=== PATIENT | male | born 1950 | race Two or more races ===

== ENCOUNTER 2020-04-06 16:30 | Inpatient (IN) | payer MEDICARE ==
[~2020-04-06] VITALS: Ht 182.9 cm; Wt 78.0 kg
[2020-04-06] MEDS ORDERED: GuaiFENesin [SUGAR-FREE] 200 MG/10 ML SOLUTION UDCUP PO PRN (21:45)
[2020-04-06] MEDS ORDERED: ACETAMINOPHEN 325 MG TABLET PO PRN (21:45)
[2020-04-06] MEDS ORDERED: BISACODYL 5 MG EC TABLET PO PRN (21:45)
[2020-04-06 22:26] VITALS: BP 95/53
[2020-04-06] MEDS: DOCUSATE SODIUM 100 MG CAPSULE PO SCH (22:41)
[2020-04-06] MEDS: SENNA 187 MG TABLET PO SCH (22:41)
[2020-04-06] MEDS: GABAPENTIN 100 MG CAPSULE PO SCH (22:41)
[2020-04-06] MEDS: CALCIUM CARBONATE 500 MG CHEWABLE TABLET CHEW SCH (22:42)
[2020-04-06] MEDS: CARBIDOPA/LEVODOPA 25-100 MG TABLET PO SCH (22:42)
[2020-04-07] VITALS: BP 90/50
[2020-04-07 00:06] LABS: COVID AG,FIA SOURCE NASAL SWAB
[2020-04-07 07:00] LABS: EOSINOPHILS % (AUTO) 2.8 % (1.0-6.0); HEMATOCRIT 37.4 % (41-53); HEMOGLOBIN 12.4 g/dL (13.5-17.5); LYMPHOCYTES # (AUTO) 1.8 K/uL (1.0-4.8); LYMPHOCYTES % (AUTO) 25.1 % (22.0-44.0); MEAN CORPUSCULAR HGB CONC 33.2 G/dL (31.0-37.0); MEAN CORPUSCULAR VOLUME 96 fL (80-100); MONOCYTES # (AUTO) 0.8 K/uL (0.1-1.0); MONOCYTES % (AUTO) 12.1 % (2.0-9.0); NEUTROPHILS # (AUTO) 4.1 K/uL (1.8-7.7); PLATELET COUNT (AUTO) 289 K/uL (150-450); RED BLOOD CELL COUNT(AUTO) 3.87 MIL/uL (4.50-5.90); RED CELL DISTRIBUTION WIDTH 12.9 % (11.5-14.5)
[2020-04-07 07:21] LABS: ALANINE AMINOTRANSFERASE 18 U/L (12-78); ALBUMIN 2.7 g/dL (3.4-5.0); ALKALINE PHOSPHATASE 81 U/L (46-116); ANION GAP 6 mmol/L (8-16); ASPARTATE AMINOTRANSFERASE 24 U/L (15-37); BILIRUBIN,TOTAL 0.2 mg/dL (0.1-1.0); CALCIUM, TOTAL 9.5 mg/dL (8.8-10.5); CARBON DIOXIDE 31 mmol/L (22-29); CHLORIDE 104 mmol/L (98-107); CREATININE 0.56 mg/dL (0.60-1.30); GLOMERULAR FILTR. RATE CALC > 60 mL/min (>60); GLUCOSE,RANDOM 89 mg/dL (70-110); POTASSIUM 3.9 mmol/L (3.5-5.1); SODIUM SERUM 141 mmol/L (136-145); TOTAL PROTEIN, SERUM 5.6 g/dL (6.4-8.2); UREA NITROGEN, BLOOD 20 mg/dL (7-18)
[2020-04-07 07:30] VITALS: BP 90/55
[2020-04-07] MEDS: NICOTINE 14 MG/24 HOUR PATCH TD SCH (08:24)
[2020-04-07] MEDS: ENOXAPARIN SODIUM 40 MG/0.4 ML PF SYRINGE SQ SCH (08:24)
[2020-04-07] MEDS: CALCIUM CARBONATE 500 MG CHEWABLE TABLET CHEW SCH ×3 (08:24→21:12)
[2020-04-07] MEDS: TAMSULOSIN HCL 0.4 MG CAPSULE PO SCH (08:24)
[2020-04-07] MEDS: GABAPENTIN 100 MG CAPSULE PO SCH ×2 (08:24→21:12)
[2020-04-07] MEDS: DOCUSATE SODIUM 100 MG CAPSULE PO SCH ×2 (08:25→21:13)
[2020-04-07] MEDS: CARBIDOPA/LEVODOPA 25-100 MG TABLET PO SCH ×3 (08:25→21:13)
[2020-04-07] MEDS: FOLIC ACID 1 MG TABLET PO SCH (08:25)
[2020-04-07] MEDS: COLD CREAM, SKIN EMOLLIENT 170 GM JAR TP SCH ×2 (08:26→21:14)
[2020-04-07] MEDS ORDERED: THIAMINE 100 MG TABLET PO SCH (09:00)
[2020-04-07 16:25] VITALS: BP 113/57
[2020-04-07] MEDS: SENNA 187 MG TABLET PO SCH (21:12)
[2020-04-07] MEDS: FAMOTIDINE 20 MG TABLET PO SCH (21:12)
[2020-04-08] VITALS: BP 98/52
[2020-04-08 08:47] VITALS: BP 96/54
[2020-04-08] MEDS: NICOTINE 14 MG/24 HOUR PATCH TD SCH (08:55)
[2020-04-08] MEDS: GABAPENTIN 100 MG CAPSULE PO SCH ×2 (08:56→21:35)
[2020-04-08] MEDS: FOLIC ACID 1 MG TABLET PO SCH (08:56)
[2020-04-08] MEDS: ENOXAPARIN SODIUM 40 MG/0.4 ML PF SYRINGE SQ SCH (08:56)
[2020-04-08] MEDS: CARBIDOPA/LEVODOPA 25-100 MG TABLET PO SCH ×3 (08:56→21:35)
[2020-04-08] MEDS: TAMSULOSIN HCL 0.4 MG CAPSULE PO SCH (08:56)
[2020-04-08] MEDS: FAMOTIDINE 20 MG TABLET PO SCH ×2 (08:56→21:36)
[2020-04-08] MEDS: COLD CREAM, SKIN EMOLLIENT 170 GM JAR TP SCH ×2 (08:56→21:36)
[2020-04-08] MEDS: DOCUSATE SODIUM 100 MG CAPSULE PO SCH (08:56)
[2020-04-08] MEDS: CALCIUM CARBONATE 500 MG CHEWABLE TABLET CHEW SCH ×3 (08:56→21:35)
[2020-04-08 16:21] VITALS: BP 99/50
[2020-04-08] MEDS: DOCUSATE SODIUM 250 MG CAPSULE PO SCH (21:35)
[2020-04-08] MEDS: SENNA 187 MG TABLET PO SCH (21:45)
[2020-04-09 02:35] VITALS: BP 94/49
[2020-04-09 08:01] VITALS: BP 106/58
[2020-04-09] MEDS: TAMSULOSIN HCL 0.4 MG CAPSULE PO SCH (09:35)
[2020-04-09] MEDS: DOCUSATE SODIUM 250 MG CAPSULE PO SCH ×2 (09:35→20:41)
[2020-04-09] MEDS: CALCIUM CARBONATE 500 MG CHEWABLE TABLET CHEW SCH ×3 (09:35→20:43)
[2020-04-09] MEDS: FOLIC ACID 1 MG TABLET PO SCH (09:35)
[2020-04-09] MEDS: FAMOTIDINE 20 MG TABLET PO SCH ×2 (09:36→20:41)
[2020-04-09] MEDS: ENOXAPARIN SODIUM 40 MG/0.4 ML PF SYRINGE SQ SCH (09:36)
[2020-04-09] MEDS: COLD CREAM, SKIN EMOLLIENT 170 GM JAR TP SCH ×2 (09:36→20:43)
[2020-04-09] MEDS: CARBIDOPA/LEVODOPA 25-100 MG TABLET PO SCH ×3 (09:36→20:43)
[2020-04-09] MEDS: GABAPENTIN 100 MG CAPSULE PO SCH ×2 (09:36→20:41)
[2020-04-09] MEDS: NICOTINE 14 MG/24 HOUR PATCH TD SCH (09:36)
[2020-04-09 16:00] VITALS: BP 105/63
[2020-04-09] MEDS: SENNA 187 MG TABLET PO SCH (20:41)
[2020-04-10] VITALS: BP 97/51
[2020-04-10 07:30] VITALS: BP 99/51
[2020-04-10] MEDS: ENOXAPARIN SODIUM 40 MG/0.4 ML PF SYRINGE SQ SCH (08:27)
[2020-04-10] MEDS: NICOTINE 14 MG/24 HOUR PATCH TD SCH (08:27)
[2020-04-10] MEDS: CALCIUM CARBONATE 500 MG CHEWABLE TABLET CHEW SCH (08:28)
[2020-04-10] MEDS: FOLIC ACID 1 MG TABLET PO SCH (08:28)
[2020-04-10] MEDS: TAMSULOSIN HCL 0.4 MG CAPSULE PO SCH (08:28)
[2020-04-10] MEDS: DOCUSATE SODIUM 250 MG CAPSULE PO SCH ×2 (08:28→20:10)
[2020-04-10] MEDS: CARBIDOPA/LEVODOPA 25-100 MG TABLET PO SCH ×3 (08:28→20:10)
[2020-04-10] MEDS: FAMOTIDINE 20 MG TABLET PO SCH ×2 (08:28→20:10)
[2020-04-10] MEDS: COLD CREAM, SKIN EMOLLIENT 170 GM JAR TP SCH ×2 (08:29→20:09)
[2020-04-10] MEDS: MULTIVITAMINS WITH MINERALS, THERAPEUTIC TABLET PO SCH (08:29)
[2020-04-10 15:13] VITALS: BP 105/59
[2020-04-10] MEDS ORDERED: TAMS-13 PO (17:29)
[2020-04-10] MEDS ORDERED: MULT-1081 PO (17:29)
[2020-04-10] MEDS: SENNA 187 MG TABLET PO SCH (20:10)
[2020-04-10] MEDS: GABAPENTIN 100 MG CAPSULE PO SCH (20:10)
[2020-04-11 01:15] VITALS: BP 135/51
[2020-04-11 07:20] VITALS: BP 93/51
[2020-04-11] MEDS: CALCIUM CARBONATE 500 MG CHEWABLE TABLET CHEW SCH (08:42)
[2020-04-11] MEDS: NICOTINE 14 MG/24 HOUR PATCH TD SCH (08:42)
[2020-04-11] MEDS: ENOXAPARIN SODIUM 40 MG/0.4 ML PF SYRINGE SQ SCH (08:42)
[2020-04-11] MEDS: FOLIC ACID 1 MG TABLET PO SCH (08:42)
[2020-04-11] MEDS: FAMOTIDINE 20 MG TABLET PO SCH ×2 (08:42→21:01)
[2020-04-11] MEDS: DOCUSATE SODIUM 250 MG CAPSULE PO SCH ×2 (08:42→21:00)
[2020-04-11] MEDS: TAMSULOSIN HCL 0.4 MG CAPSULE PO SCH (08:42)
[2020-04-11] MEDS: MULTIVITAMINS WITH MINERALS, THERAPEUTIC TABLET PO SCH (08:42)
[2020-04-11] MEDS: COLD CREAM, SKIN EMOLLIENT 170 GM JAR TP SCH ×2 (08:42→21:00)
[2020-04-11] MEDS: CARBIDOPA/LEVODOPA 25-100 MG TABLET PO SCH ×3 (08:43→21:00)
[2020-04-11 16:00] VITALS: BP 114/68
[2020-04-11] MEDS: THIAMINE 100 MG TABLET PO SCH (16:13)
[2020-04-11] MEDS: GABAPENTIN 100 MG CAPSULE PO SCH (21:00)
[2020-04-11] MEDS: SENNA 187 MG TABLET PO SCH (21:00)
[2020-04-12 00:36] VITALS: BP 100/55
[2020-04-12 07:30] VITALS: BP 87/52
[2020-04-12] MEDS: ENOXAPARIN SODIUM 40 MG/0.4 ML PF SYRINGE SQ SCH (08:01)
[2020-04-12] MEDS: MULTIVITAMINS WITH MINERALS, THERAPEUTIC TABLET PO SCH (08:01)
[2020-04-12] MEDS: CALCIUM CARBONATE 500 MG CHEWABLE TABLET CHEW SCH (08:01)
[2020-04-12] MEDS: THIAMINE 100 MG TABLET PO SCH (08:01)
[2020-04-12] MEDS: DOCUSATE SODIUM 250 MG CAPSULE PO SCH ×2 (08:01→20:10)
[2020-04-12] MEDS: NICOTINE 14 MG/24 HOUR PATCH TD SCH (08:01)
[2020-04-12] MEDS: CARBIDOPA/LEVODOPA 25-100 MG TABLET PO SCH ×3 (08:01→20:10)
[2020-04-12] MEDS: FOLIC ACID 1 MG TABLET PO SCH (08:01)
[2020-04-12] MEDS: COLD CREAM, SKIN EMOLLIENT 170 GM JAR TP SCH ×2 (08:02→20:09)
[2020-04-12] MEDS: FAMOTIDINE 20 MG TABLET PO SCH ×2 (08:04→20:10)
[2020-04-12] MEDS: TAMSULOSIN HCL 0.4 MG CAPSULE PO SCH (08:04)
[2020-04-12 15:58] VITALS: BP 98/63
[2020-04-12] MEDS: GABAPENTIN 100 MG CAPSULE PO SCH (20:10)
[2020-04-12] MEDS: SENNA 187 MG TABLET PO SCH (20:10)
[2020-04-13 00:17] VITALS: BP 98/50
[2020-04-13 08:00] VITALS: BP 94/50
[2020-04-13] MEDS: DOCUSATE SODIUM 250 MG CAPSULE PO SCH ×2 (09:10→20:15)
[2020-04-13] MEDS: CALCIUM CARBONATE 500 MG CHEWABLE TABLET CHEW SCH (09:10)
[2020-04-13] MEDS: TAMSULOSIN HCL 0.4 MG CAPSULE PO SCH (09:11)
[2020-04-13] MEDS: FOLIC ACID 1 MG TABLET PO SCH (09:11)
[2020-04-13] MEDS: ENOXAPARIN SODIUM 40 MG/0.4 ML PF SYRINGE SQ SCH (09:11)
[2020-04-13] MEDS: THIAMINE 100 MG TABLET PO SCH (09:11)
[2020-04-13] MEDS: FAMOTIDINE 20 MG TABLET PO SCH ×2 (09:11→20:15)
[2020-04-13] MEDS: MULTIVITAMINS WITH MINERALS, THERAPEUTIC TABLET PO SCH (09:11)
[2020-04-13] MEDS: CARBIDOPA/LEVODOPA 25-100 MG TABLET PO SCH ×3 (09:11→20:16)
[2020-04-13] MEDS: NICOTINE 14 MG/24 HOUR PATCH TD SCH (09:12)
[2020-04-13] MEDS: COLD CREAM, SKIN EMOLLIENT 170 GM JAR TP SCH ×2 (09:12→20:16)
[2020-04-13 16:00] VITALS: BP 100/56
[2020-04-13] MEDS: GABAPENTIN 100 MG CAPSULE PO SCH (20:15)
[2020-04-13] MEDS: SENNA 187 MG TABLET PO SCH (20:15)
[2020-04-14 00:11] VITALS: BP 99/53
[2020-04-14] MEDS: FAMOTIDINE 20 MG TABLET PO SCH ×2 (07:53→20:22)
[2020-04-14] MEDS: DOCUSATE SODIUM 250 MG CAPSULE PO SCH ×2 (07:53→20:24)
[2020-04-14] MEDS: THIAMINE 100 MG TABLET PO SCH (07:53)
[2020-04-14] MEDS: ENOXAPARIN SODIUM 40 MG/0.4 ML PF SYRINGE SQ SCH (07:53)
[2020-04-14] MEDS: MULTIVITAMINS WITH MINERALS, THERAPEUTIC TABLET PO SCH (07:53)
[2020-04-14] MEDS: FOLIC ACID 1 MG TABLET PO SCH (07:53)
[2020-04-14] MEDS: TAMSULOSIN HCL 0.4 MG CAPSULE PO SCH (07:53)
[2020-04-14] MEDS: CARBIDOPA/LEVODOPA 25-100 MG TABLET PO SCH ×3 (07:53→20:24)
[2020-04-14] MEDS: CALCIUM CARBONATE 500 MG CHEWABLE TABLET CHEW SCH (07:53)
[2020-04-14] MEDS: COLD CREAM, SKIN EMOLLIENT 170 GM JAR TP SCH ×2 (07:54→20:25)
[2020-04-14] MEDS: NICOTINE 14 MG/24 HOUR PATCH TD SCH (07:54)
[2020-04-14 08:00] VITALS: BP 105/57
[2020-04-14 16:09] VITALS: BP 100/67
[2020-04-14] MEDS: SENNA 187 MG TABLET PO SCH (20:23)
[2020-04-14] MEDS: GABAPENTIN 100 MG CAPSULE PO SCH (20:24)
[2020-04-14 23:52] VITALS: BP 96/53
[2020-04-15 07:28] VITALS: BP 107/53
[2020-04-15] MEDS: FAMOTIDINE 20 MG TABLET PO SCH ×2 (09:01→20:18)
[2020-04-15] MEDS: CARBIDOPA/LEVODOPA 25-100 MG TABLET PO SCH ×3 (09:01→20:18)
[2020-04-15] MEDS: MULTIVITAMINS WITH MINERALS, THERAPEUTIC TABLET PO SCH (09:01)
[2020-04-15] MEDS: CALCIUM CARBONATE 500 MG CHEWABLE TABLET CHEW SCH (09:01)
[2020-04-15] MEDS: THIAMINE 100 MG TABLET PO SCH (09:01)
[2020-04-15] MEDS: FOLIC ACID 1 MG TABLET PO SCH (09:01)
[2020-04-15] MEDS: TAMSULOSIN HCL 0.4 MG CAPSULE PO SCH (09:01)
[2020-04-15] MEDS: ENOXAPARIN SODIUM 40 MG/0.4 ML PF SYRINGE SQ SCH (09:02)
[2020-04-15] MEDS: COLD CREAM, SKIN EMOLLIENT 170 GM JAR TP SCH ×2 (09:02→20:18)
[2020-04-15] MEDS: NICOTINE 14 MG/24 HOUR PATCH TD SCH (09:02)
[2020-04-15] MEDS: DOCUSATE SODIUM 250 MG CAPSULE PO SCH ×2 (09:04→20:17)
[2020-04-15 16:38] VITALS: BP 108/66
[2020-04-15] MEDS: SENNA 187 MG TABLET PO SCH (20:17)
[2020-04-15] MEDS: GABAPENTIN 100 MG CAPSULE PO SCH (20:18)
[2020-04-16] VITALS: BP 103/56
[2020-04-16] MEDS: TAMSULOSIN HCL 0.4 MG CAPSULE PO SCH (07:57)
[2020-04-16] MEDS: CALCIUM CARBONATE 500 MG CHEWABLE TABLET CHEW SCH (07:57)
[2020-04-16] MEDS: FOLIC ACID 1 MG TABLET PO SCH (07:57)
[2020-04-16] MEDS: DOCUSATE SODIUM 250 MG CAPSULE PO SCH ×2 (07:57→21:04)
[2020-04-16] MEDS: CARBIDOPA/LEVODOPA 25-100 MG TABLET PO SCH ×3 (07:57→21:05)
[2020-04-16] MEDS: FAMOTIDINE 20 MG TABLET PO SCH ×2 (07:57→21:07)
[2020-04-16] MEDS: NICOTINE 14 MG/24 HOUR PATCH TD SCH (07:58)
[2020-04-16] MEDS: COLD CREAM, SKIN EMOLLIENT 170 GM JAR TP SCH ×2 (07:58→21:05)
[2020-04-16] MEDS: MULTIVITAMINS WITH MINERALS, THERAPEUTIC TABLET PO SCH (07:58)
[2020-04-16] MEDS: THIAMINE 100 MG TABLET PO SCH (07:58)
[2020-04-16] MEDS: ENOXAPARIN SODIUM 40 MG/0.4 ML PF SYRINGE SQ SCH (07:58)
[2020-04-16 08:00] VITALS: BP 117/66
[2020-04-16 16:54] VITALS: BP 98/61
[2020-04-16] MEDS: GABAPENTIN 100 MG CAPSULE PO SCH (21:04)
[2020-04-16] MEDS: SENNA 187 MG TABLET PO SCH (21:04)
[2020-04-17 04:22] VITALS: BP 97/53
[2020-04-17] MEDS: TAMSULOSIN HCL 0.4 MG CAPSULE PO SCH (07:58)
[2020-04-17] MEDS: CALCIUM CARBONATE 500 MG CHEWABLE TABLET CHEW SCH (07:58)
[2020-04-17] MEDS: FAMOTIDINE 20 MG TABLET PO SCH ×2 (07:58→20:12)
[2020-04-17] MEDS: FOLIC ACID 1 MG TABLET PO SCH (07:58)
[2020-04-17] MEDS: MULTIVITAMINS WITH MINERALS, THERAPEUTIC TABLET PO SCH (07:58)
[2020-04-17] MEDS: DOCUSATE SODIUM 250 MG CAPSULE PO SCH ×2 (07:58→20:12)
[2020-04-17] MEDS: CARBIDOPA/LEVODOPA 25-100 MG TABLET PO SCH ×3 (07:58→20:12)
[2020-04-17] MEDS: THIAMINE 100 MG TABLET PO SCH (07:59)
[2020-04-17] MEDS: NICOTINE 14 MG/24 HOUR PATCH TD SCH (07:59)
[2020-04-17] MEDS: ENOXAPARIN SODIUM 40 MG/0.4 ML PF SYRINGE SQ SCH (07:59)
[2020-04-17] MEDS: COLD CREAM, SKIN EMOLLIENT 170 GM JAR TP SCH ×2 (07:59→20:12)
[2020-04-17 08:00] VITALS: BP 98/53
[2020-04-17 16:02] VITALS: BP 114/64
[2020-04-17] MEDS: GABAPENTIN 100 MG CAPSULE PO SCH (20:12)
[2020-04-17] MEDS: SENNA 187 MG TABLET PO SCH (20:12)
[2020-04-18 00:07] VITALS: BP 111/64
[2020-04-18] MEDS ORDERED: DOCU-350 PO (03:43)
[2020-04-18] MEDS ORDERED: CARB-98 PO (03:43)
[2020-04-18] MEDS ORDERED: GABA-1216 PO (03:43)
[2020-04-18] MEDS ORDERED: FOLI-130 PO (03:43)
[2020-04-18] MEDS ORDERED: THIA100T80 PO (03:43)
[2020-04-18] MEDS ORDERED: MULT-1239 PO (03:43)
[2020-04-18] MEDS ORDERED: ALBO180CR TP (03:43)
[2020-04-18] MEDS ORDERED: NICO-703 TD (03:43)
[2020-04-18] MEDS ORDERED: FAMO20 PO (03:43)
[2020-04-18] MEDS ORDERED: CALC-613 PO (03:43)
[2020-04-18] MEDS ORDERED: TAMS-13 PO (03:43)
[2020-04-18 08:00] VITALS: BP 100/56
[2020-04-18] MEDS: FOLIC ACID 1 MG TABLET PO SCH (08:02)
[2020-04-18] MEDS: TAMSULOSIN HCL 0.4 MG CAPSULE PO SCH (08:02)
[2020-04-18] MEDS: CALCIUM CARBONATE 500 MG CHEWABLE TABLET CHEW SCH (08:02)
[2020-04-18] MEDS: FAMOTIDINE 20 MG TABLET PO SCH ×2 (08:02→20:15)
[2020-04-18] MEDS: DOCUSATE SODIUM 250 MG CAPSULE PO SCH ×2 (08:02→20:15)
[2020-04-18] MEDS: THIAMINE 100 MG TABLET PO SCH (08:03)
[2020-04-18] MEDS: CARBIDOPA/LEVODOPA 25-100 MG TABLET PO SCH ×3 (08:03→20:15)
[2020-04-18] MEDS: MULTIVITAMINS WITH MINERALS, THERAPEUTIC TABLET PO SCH (08:03)
[2020-04-18] MEDS: ENOXAPARIN SODIUM 40 MG/0.4 ML PF SYRINGE SQ SCH (08:03)
[2020-04-18] MEDS: COLD CREAM, SKIN EMOLLIENT 170 GM JAR TP SCH ×2 (08:04→20:16)
[2020-04-18] MEDS: NICOTINE 14 MG/24 HOUR PATCH TD SCH (08:04)
[2020-04-18 16:28] VITALS: BP 116/59
[2020-04-18] MEDS: GABAPENTIN 100 MG CAPSULE PO SCH (20:15)
[2020-04-18] MEDS: SENNA 187 MG TABLET PO SCH (20:15)
[2020-04-19 00:08] VITALS: BP 110/63
[2020-04-19 08:00] VITALS: BP 103/58
[2020-04-19] MEDS: CALCIUM CARBONATE 500 MG CHEWABLE TABLET CHEW SCH (08:40)
[2020-04-19] MEDS: DOCUSATE SODIUM 250 MG CAPSULE PO SCH (08:40)
[2020-04-19] MEDS: MULTIVITAMINS WITH MINERALS, THERAPEUTIC TABLET PO SCH (08:41)
[2020-04-19] MEDS: THIAMINE 100 MG TABLET PO SCH (08:41)
[2020-04-19] MEDS: TAMSULOSIN HCL 0.4 MG CAPSULE PO SCH (08:41)
[2020-04-19] MEDS: CARBIDOPA/LEVODOPA 25-100 MG TABLET PO SCH (08:41)
[2020-04-19] MEDS: ENOXAPARIN SODIUM 40 MG/0.4 ML PF SYRINGE SQ SCH (08:41)
[2020-04-19] MEDS: FOLIC ACID 1 MG TABLET PO SCH (08:41)
[2020-04-19] MEDS: FAMOTIDINE 20 MG TABLET PO SCH (08:41)
[2020-04-19] MEDS: COLD CREAM, SKIN EMOLLIENT 170 GM JAR TP SCH (08:42)
[2020-04-19] MEDS: NICOTINE 14 MG/24 HOUR PATCH TD SCH (08:42)
== END 2020-04-19 12:10 | disposition home or self-care (01) | DRG 56 ==
LOC: 2WR 20:54
PROVIDERS: ADMIT Physical Medicine & Rehabilitation; ATTEND Physical Medicine & Rehabilitation
DX: G20 Parkinson's disease (principal); G93.41 Metabolic encephalopathy; N39.0 Urinary tract infection, site not specified; E51.2 Wernicke's encephalopathy; E46 Unspecified protein-calorie malnutrition; R41.844 Frontal lobe and executive function deficit; R26.2 Difficulty in walking, not elsewhere classified; F10.20 Alcohol dependence, uncomplicated; K21.9 Gastro-esophageal reflux disease without esophagitis; N40.0 Benign prostatic hyperplasia without lower urinary tract symptoms; K59.00 Constipation, unspecified; G62.9 Polyneuropathy, unspecified; R49.0 Dysphonia; R47.1 Dysarthria and anarthria
CPT/HCPCS: 87081; 87426; 92507; 92523; 92610; 93970; 97110; 97112; 97116; 97150; 97163; 97166; 97530; 97535; 99366; J1650